=== PATIENT | female | born 1985 | race American Indian/Alaskan Native ===

== ENCOUNTER 2017-09-02 09:04 | Emergency (ER) | payer SELFPAY ==
[2017-09-02 10:04] LABS: Basophils % (Auto) 0.3 % (0.0-1.8); Eosinophils # (Auto) 0.1 K/mm3 (0.0-0.4); Eosinophils % (Auto) 0.6 % (0.0-4.3); Hematocrit 41.6 % (30.3-42.9); Hemoglobin 14.1 gm/dl (10.1-14.3); Lymphocytes # (Auto) 2.9 K/mm3 (1.2-5.4); Lymphocytes % (Auto) 28.1 % (13.4-35.0); Mean Corpuscular HGB Conc 34 % (30-34); Mean Corpuscular Hemoglobin 30 pg (28-32); Mean Corpuscular Volume 87 fl (79-97); Monocytes % (Auto) 9.3 % (0.0-7.3); Platelet Count 283 K/mm3 (140-440); Red Blood Count 4.78 M/mm3 (3.65-5.03); Red Cell Distribution Width 13.6 % (13.2-15.2)
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
[2017-09-02 10:16] LABS: BUN/Creatinine Ratio 18; Blood Urea Nitrogen 14 mg/dL (7-17); Calcium 9.7 mg/dL (8.4-10.2); Hemolysis Index 1
[2017-09-02 14:49] LABS: Bacteria,Urine 1+ /HPF (Negative); Bilirubin,Urine NEG (Negative); Blood,Urine NEG (Negative); Color,Urine Yellow (Yellow); Mucus,Urine 1+ /HPF
[2017-09-02 15:14] LABS: Benzodiazepines Screen,Urine PRESUMPTIVE NEGATIVE; Cannabinoid Screen,Urine PRESUMPTIVE NEGATIVE; Cocaine Screen,Urine PRESUMPTIVE NEGATIVE; Methadone Screen,Urine PRESUMPTIVE NEGATIVE; Opiate Screen,Urine PRESUMPTIVE NEGATIVE
[2017-09-02 15:33] LABS: Amphetamine Screen,Urine PRESUMPTIVE POSITIVE
--- NOTE | 2017-09-04 15:55 | Consultation ---
History of Present Illness - Reason for Consult Consult date: 09/04/17 Reason for consult: Mental Health Evaluation Requesting physician: MALGORZATA CRAIG - Chief Complaint Chief complaint: "I am so upset with my life" - History of Present Psychiatric Illness 31 y.o. AA female presenting to the ER by police for possible suicide attempt by wandering into traffic. Today the patient is calm and cooperative during the assessment. She stated having several stressors in her life (being homeless, unemployed, and not having a good relationship with her mother). She was asked about her actions prior to being brought to the ER, she could not explain it. She stated being hospitalized at a mental health facility in the past and took medications. She stated that she attempted suicide in the past as a teenager. She stated that she is homeless and use "meth" for several months to stay up because she is afraid to sleep on the streets. She stated that she cannot keep steady employment because of her behaviors. She denies SI/HI's and AVH's. She denies a poor appetite. She would not confirm or deny being depressed when asked. She denies alcohol consumption (etoh). Medications and Allergies Allergies Allergy/AdvReac Type Severity Reaction Status Date / Time No Known Allergies Allergy Unverified 09/02/17 09:33 Home Medications Medication Instructions Recorded Confirmed Last Taken Type No Known Home Medications [No 09/02/17 09/02/17 Unknown History Reported Home Medications] Past psychiatric history - Past Medical History Past Medical History: No medical history Past Surgical History: Other (Ectopic ) - past Psychiatric treatment and history psychiatric treatment history: Inpatient psy services in the past. Denies a fam psy hx. - Social History Social history: other (Homeless) Mental Status Exam - Vital signs Last Vital Signs Temp 98.1 F 09/04/17 07:54 Pulse 70 09/04/17 07:54 Resp 18 09/04/17 07:54 BP 108/77 09/04/17 07:54 Pulse Ox 100 09/04/17 07:54 - Exam Narrative exam: MSE: Appearance: calm, cooperative Behavior: poor eye contact Speech: regular rate and tone Mood: "depressed" Affect: congruent to mood Thought Process: circumstantial Thought Content: denies SI/HI's and AVH's Motor Activity: ambulatory Cognition: A/O x 3 Insight: fair Judgment: variable Results Result Diagrams: 09/02/17 09:42 09/02/17 09:42 All other labs normal. Assessment and Plan Assessment and plan: Impression: Unspecified Mood DO. Substance Use DO (amphetamines). Today the patient is calm and cooperative during the assessment. The patient is homeless. DDx: Bipolar DO, R/O MDD Recommendation/Plan: Continue 1013 and gather collateral information to help determine dispo. Start Seroquel 200 mg PO HS for mood. Discussed possible metabolic side effects of Seroquel with patient.
[2017-09-04] MEDS ORDERED: TYLENOL PO ONE (17:54)
[2017-09-05 10:09] VITALS: BP 149/79
== END 2017-09-05 10:21 ==
LOC: ED 09:04
DX: T14.91XA Suicide attempt, initial encounter (principal); F32.9 Major depressive disorder, single episode, unspecified; F17.200 Nicotine dependence, unspecified, uncomplicated; X83.8XXA Intentional self-harm by other specified means, initial encounter; Y93.89 Activity, other specified; Y99.8 Other external cause status; Y92.89 Other specified places as the place of occurrence of the external cause
CPT/HCPCS: 36415; 80048; 80307; 81001; 84703; 85025; 93005; 93010; 99285; G0480; 80320